=== PATIENT | female | born 1935 | race African-American/Black ===

== ENCOUNTER 2023-12-11 17:43 | Emergency (ER) | payer SELFPAY ==
[~2023-12-11] VITALS: Ht 157.5 cm; Wt 86.2 kg
[2023-12-11 17:48] VITALS: O2SAT 100
[2023-12-11] MEDS: IBUPROFEN 600MG TABLET PO ONE (19:00)
[2023-12-11] MEDS ORDERED: DICL100G58 TP (19:11)
[2023-12-11 19:34] VITALS: BP 179/83; PULSE 78; RESP 18; TEMP 98
== END 2023-12-11 19:36 | disposition home or self-care (01) ==
LOC: ER 17:43
DX: S83.91XA Sprain of unspecified site of right knee, initial encounter (principal); E11.9 Type 2 diabetes mellitus without complications; I10 Essential (primary) hypertension; V49.59XA Passenger injured in collision with other motor vehicles in traffic accident, initial encounter; Y93.89 Activity, other specified; Y92.89 Other specified places as the place of occurrence of the external cause; Y99.8 Other external cause status
CPT/HCPCS: 73562; 99283